=== PATIENT | female | born 1935 | race Caucasian/White ===

== ENCOUNTER 2019-03-19 17:54 | Inpatient (IN) | payer MEDICARE, OTHER ==
[~2019-03-19] VITALS: Ht 167.6 cm; Wt 62.5 kg
[2019-03-19] MEDS ORDERED: Synthroid88 MCG PO (18:10)
[2019-03-19] MEDS ORDERED: Ultram50 MG PO (18:10)
[2019-03-19] MEDS ORDERED: Ventolin/Prove6.7 GM INH (18:10)
[2019-03-19] MEDS ORDERED: OMEPRAZOLE MAGN20 M1 PO (18:10)
[2019-03-19 19:13] LABS: BASOPHILS ABSOLUTE AUTO 0.05 K/mm3 (0.00-0.23); BASOPHILS PERCENT AUTO 0 % (0-2); EOSINOPHILS ABSOLUTE AUTO 0.06 K/mm3 (0.00-0.68); EOSINOPHILS PERCENT AUTO 0 % (0-6); Hematocrit 30.9 % (33.0-51.0); Hemoglobin 9.2 g/dL (11.5-16.0); IMMATURE GRAN ABSOLUTE AUTO 0.11 K/mm3 (0.00-0.10); IMMATURE GRAN PERCENT AUTO 1 % (0-1); LYMPHOCYTES ABSOLUTE AUTO 1.07 K/mm3 (0.84-5.20); LYMPHOCYTES PERCENT AUTO 6 % (21-46); MONOCYTES ABSOLUTE AUTO 0.94 K/mm3 (0.16-1.47); MONOCYTES PERCENT AUTO 6 % (4-13); Mean Corpuscular HGB 20.6 pg (26.0-34.0); Mean Corpuscular HGB Conc 29.8 g/dL (31.5-36.5); Mean Corpuscular Volume 69 fL (80-100); Mean Platelet Volume 9.8 fL (9.1-12.4); NEUTROPHILS ABSOLUTE AUTO 14.86 K/mm3 (1.96-9.15); NEUTROPHILS PERCENT AUTO 87 % (41-73); Platelet Count 222 K/mm3 (150-400); RDW Coefficient Variation 19.4 % (11.7-14.2); RDW Standard Deviation 47.4 fL (35.1-46.3); Red Blood Cell Count 4.47 M/mm3 (3.80-5.20); White Blood Cell Count 17.09 K/mm3 (4.00-11.30)
[2019-03-19 19:30] LABS: Alanine Aminotransfer (ALT/SGP 27 U/L (12-78); Albumin, Blood 3.3 g/dL (3.4-5.0); Albumin/Globulin Ratio 0.8 (0.8-1.8); Alk Phos 119 U/L (50-136); Anion Gap 5 mmol/L (6-16); Aspartate Aminotrans (AST/SGOT 25 U/L (12-37); Bilirubin, Total 0.4 mg/dL (0.1-1.0); Blood Urea Nitrogen 15 mg/dL (8-24); Bun/Creatinine Ratio 22.3 (12.0-20.0); CO2, Blood 28 mmol/L (21-32); Calcium, Blood 8.8 mg/dL (8.5-10.1); Chloride, Blood 102 mmol/L (98-108); Creatinine, Blood 0.67 mg/dL (0.40-1.00); Globulin, Blood 4.2 g/dL (2.2-4.0); Glomerular Filtration Rate >60 (60-); Glucose, Blood 116 mg/dL (70-99); Potassium, Blood 3.4 mmol/L (3.5-5.5); Sodium, Blood 135 mmol/L (136-145); Total Protein, Blood 7.5 g/dL (6.4-8.2)
[2019-03-19 19:57] LABS: Source, Urine Voided
[2019-03-19 20:01] LABS: Bilirubin, Urine Neg (Neg); Blood, Urine 2+ (Neg); Glucose Qualitative, Urine Neg (Neg); Ketones, Urine 2+ (Neg); Leukocyte Esterase, Urine 1+ (Neg); Nitrite, Urine Neg (Neg); Protein, Urine Neg (Neg); Specific Gravity, Urine 1.015 (1.003-1.022); Urobilinogen, Urine NORM (Normal)
[2019-03-19 20:03] LABS: Appearance, Urine Clear (Clear); Color, Urine Yellow (P-Yellow)
[2019-03-19 20:07] LABS: Bacteria Mod /hpf; Mucus Light (0-Heavy); Squamous Epithelial Cells Rare /hpf (Few)
--- NOTE | 2019-03-20 04:31 | NUR ---
SHIFT SUMMARY- PT. ARRIVED FROM ED VIA STRETCHER INTO ROOM. ASSISTED INTO BED. A&OX3, PLEASANT AND COOPERATIVE WITH CARE. PT IS A SBA W/WALKER TO BATHROOM. DENIED ANY DISCOMFORT T/O THE SHIFT. PT. SLEEPING COMFORTABLY IN BED, NO APPARENT DISTRESS NOTED. CALL LIGHT WITHIN REACH AND SIDE RAILS UP X2. WILL CONT TO JIN.
[2019-03-20 04:41] LABS: Alanine Aminotransfer (ALT/SGP 22 U/L (12-78); Albumin, Blood 2.8 g/dL (3.4-5.0); Albumin/Globulin Ratio 0.7 (0.8-1.8); Alk Phos 109 U/L (50-136); Anion Gap 7 mmol/L (6-16); Aspartate Aminotrans (AST/SGOT 23 U/L (12-37); Bilirubin, Total 0.5 mg/dL (0.1-1.0); Blood Urea Nitrogen 11 mg/dL (8-24); Bun/Creatinine Ratio 15.7 (12.0-20.0); CO2, Blood 28 mmol/L (21-32); Calcium, Blood 8.1 mg/dL (8.5-10.1); Chloride, Blood 103 mmol/L (98-108); Glomerular Filtration Rate >60 (60-); Glucose, Blood 105 mg/dL (70-99); Potassium, Blood 3.2 mmol/L (3.5-5.5); Sodium, Blood 138 mmol/L (136-145); Total Protein, Blood 6.8 g/dL (6.4-8.2)
--- NOTE | 2019-03-20 16:08 | NUR ---
[facility] CARE INITIAL VISIT. Case conferenced with RN early in the day re: pt's requests to complete an AD. VIsit made this afternoon. Pt and her friend, Ann Marie, who pt identifies as her NOK and surrogate decision maker resting in the room but want to discuss advanced directives, goals of care, code status and also want to complete an advanced directive and/or POLST. Pt is curled up in bed. She expresses mistrust and fear of the medical community in general. She reports being afraid to come to medical facilities or Dr's offices for fear of being euthanized. She expresses that she does not want to be given a shot and put out. She expressess that she does not want to be kept alive by machines either. She spoke about residing at [facility] and meeting good people there in the past year. She is certain that what ever issue she is having with her lungs is not cancer because "God doesn't break his promises and he said he would cure me and he did.". We discussed her s/s and chronic conditions unrelated to her hx of lung cancer that may cause debility, sob and discomfort. We reviewed the AD form and the POLST form. She wants to pray about these with Ann Marie and others and asks that I return tomorrow, which I agreed to do. Pt was admitted with sepsis, SOB. CT shows enlarged mediastinal nodes, opacities Rul and Rml that per report may be pneumonia, atelectasis or aspiration. Pt has hiatal hernia, GERD and moderate to severe COPD. We discussed specifically CPR and intubation and pt does not think she would want either of those things. I informed her that currently with a full code status would receive those interventions if needed. She understands and will let me know tomorrow if she wants to remain a full code or change her code status. I gave her and Ann Marie some literature to review to help generate questions for her drs to help with their decision. Pt denies pain that is not managed by her current rxs per eMAR. She does describe high levels of anxiety being hospitalized and states it is ok with Ann Marie present. Extra pillow brought to room for Ann Marie so that she could rest while pt resting/sleeping. No other needs identified at this time. Plan to return tomorrow and cont. advanced care planning conversations.
--- NOTE | 2019-03-20 17:46 | NUR ---
SHIFT SUMMARY- PT ALERT AND ORIENTED HAD FAMILY FRIEND AT THE BEDSIDE T/O THE DAY. RECIEVED VERBAL CONSENT TO SPEAK WITH THE PT SON KAREN. HE CALLED FOR AN UPDATE, SPOKE TO HIM PER PT REQUEST. PT IS CURRENTLY SITTING UP IN BED WITH HER CALL LIGHT IN REACH WAS MEDICATED THREE TIMES FOR PAIN, HAD A LOW GRADE FEVER THIS MORNING 100.7 MEDICATED WITH TYLENOL. PT ALSO HAD A HEADACHE AT THAT TIME THAT RESOLVED WITH TYLENOL. PT SIGNED A REFUSAL TO RECIEVE BLOOD PRODUCTS WELL VERBAL CONSENT TO RELEASE INFORMATION. PT ON PO AND IV ABX. PT IS CURRENTLY SATING IN THE 90'S ON ROOM AIR. NO S&S OF DISTRESS NOTED AT THIS TIME.
--- NOTE | 2019-03-21 04:32 | NUR ---
SHIFT SUMMARY- PT. RESTED WELL T/O THE NIGHT, NO APPARENT DISTRESS NOTED. PT. C/O RUQ PAIN, MEDICATED 2X T/O THE SHIFT. PT. HAS PERSISTANT COUGH, RECEIVING PRN NEB TX'S WELL PO AND IV ABX'S. DENIES ANY NEEDS AT THIS TIME. CALL LIGHT WITHIN REACH AND SIDE RAILS UP X2. WILL CONT TO MONITOR.
[2019-03-21 06:13] LABS: BASOPHILS ABSOLUTE AUTO 0.06 K/mm3 (0.00-0.23); BASOPHILS PERCENT AUTO 0 % (0-2); EOSINOPHILS ABSOLUTE AUTO 0.27 K/mm3 (0.00-0.68); EOSINOPHILS PERCENT AUTO 2 % (0-6); Hematocrit 31.6 % (33.0-51.0); IMMATURE GRAN ABSOLUTE AUTO 0.12 K/mm3 (0.00-0.10); IMMATURE GRAN PERCENT AUTO 1 % (0-1); LYMPHOCYTES ABSOLUTE AUTO 2.37 K/mm3 (0.84-5.20); LYMPHOCYTES PERCENT AUTO 14 % (21-46); MONOCYTES ABSOLUTE AUTO 1.22 K/mm3 (0.16-1.47); MONOCYTES PERCENT AUTO 7 % (4-13); Mean Corpuscular HGB 19.8 pg (26.0-34.0); Mean Corpuscular HGB Conc 28.5 g/dL (31.5-36.5); Mean Corpuscular Volume 70 fL (80-100); Mean Platelet Volume 10.1 fL (9.1-12.4); NEUTROPHILS PERCENT AUTO 76 % (41-73); Platelet Count 235 K/mm3 (150-400); RDW Standard Deviation 48.3 fL (35.1-46.3); Red Blood Cell Count 4.54 M/mm3 (3.80-5.20); White Blood Cell Count 16.84 K/mm3 (4.00-11.30)
[2019-03-21 06:32] LABS: Anion Gap 5 mmol/L (6-16); Blood Urea Nitrogen 11 mg/dL (8-24); Bun/Creatinine Ratio 15.6 (12.0-20.0); CO2, Blood 29 mmol/L (21-32); Calcium, Blood 9.1 mg/dL (8.5-10.1); Chloride, Blood 104 mmol/L (98-108); Glomerular Filtration Rate >60 (60-); Glucose, Blood 94 mg/dL (70-99); Potassium, Blood 4.5 mmol/L (3.5-5.5); Sodium, Blood 138 mmol/L (136-145)
--- NOTE | 2019-03-21 10:15 | NUR ---
PT REFUSED DECAF COFFEE PT REFUSED DECAF COFFE. PT REQUESTED REGULAR. PT EDUCATED ON CARDIAC DIET. PT REFUSED ANYWAYS & REQUESTED REGULAR COFFEE AGAIN. 1 CUP GIVEN PER PT REQUEST.
--- NOTE | 2019-03-21 13:45 | NUR ---
Pal care f/u visit. Pt has been reading book left with her yesterday, Hard choices for loving people, regarding EOL care choices. She reports that she does not want CPR, intubation, blood transfusions or tube feedings. She has completed the POLST left with her yesterday and has it ready to sign, which she did. We spoke about her wade and beliefs and pt is confident in her choices for herself but expresses being scared even so. Comfort and assurance offered. Pt has a friend at bedside, also comforting her. notified of new POLST and new code status orders entered after talking with her RN and DR. BECKMAN faxed to medical records and original given back to pt. Pt has a large group of sabianism friends who are regularly present, supporting her.
--- NOTE | 2019-03-21 14:59 | NUR ---
PT FAMILY UPDATED. PT SON SAMIR UPDATED ON PT CONDITION & PLAN OF CARE. PT AGREED TO ALLOW FOR HIM TO KNOW ABOUT HER HEALTHCARE.
--- NOTE | 2019-03-21 17:00 | NUR ---
SHIFT SUMMARY PT HAD SLIGHT TEMP THIS AFTERNOON OF 99.1. PT TREATED WITH TYLENOL. TEMP WNL NOW. OTHER VITALS STABLE. NO OTHER CHANGES IN ASSESSMENT AT THIS TIME. PT MEDICATED FOR PAIN ONCE THIS SHIFT. POSSIBLE DC TOMORROW. WILL CONTINUE TO MONITOR UNTIL TURNOVER IS COMPLETE.
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
--- NOTE | 2019-03-22 03:52 | NUR ---
SHIFT SUMMARY- NO ACUTE EVENTS OVERNIGHT. PT. SLEPT WELL DURING THE NIGHT. PAIN MED GIVEN 1X PER EMAR. DENIED ANY OTHER NEEDS T/O THE NIGHT. ANTICIPATING D/C TOMORROW. CALL LIGHT WITHIN REACH AND SIDE RAILS UP X2. WILL CONT TO MONITOR.
--- NOTE | 2019-03-22 08:29 | NUR ---
PT PLEASANT COOP A/O TALKATIVE. STATES PAIN IN RIBS FROM COUGHING. MED PER EMAR. H/R REG, NO MURMER NOTED. NO TELE. LUNGS CLEAR, RESP EASY, UNLABORED. ON R.A. BT X4 LAST BM YEST. VOIDS INDEPENDANT TO BATHROOM. WITH FWW. BED IN LOW POSITION, CALL LITE IN REACH, CALLS APPROP
[2019-03-22] MEDS ORDERED: ACET325 PO (12:10)
[2019-03-22] MEDS ORDERED: Zithromax250 MG PO (12:11)
[2019-03-22] MEDS ORDERED: CEFP200 PO (12:13)
[2019-03-22] MEDS ORDERED: GUAI600T33 PO (12:13)
[2019-03-22] MEDS ORDERED: K-Dur20 MEQ PO (12:15)
[2019-03-22] MEDS ORDERED: Florastor250 MG PO (12:15)
[2019-03-22] MEDS ORDERED: SENN187 PO (12:16)
--- NOTE | 2019-03-22 12:57 | NUR ---
PT DISCHARGE REVIEWED WITH PT PT VERBALIZED UNDERSTANDING . IV PULLED INTACT.NO TELE. PENDING RIDE HOME
--- NOTE | 2019-03-22 14:30 | NUR ---
OUT DOOR WITH CLEANER WALL AT [phone]
== END 2019-03-22 13:46 | disposition home or self-care (01) | DRG 871 ==
LOC: ER 17:54 → MEDS 17:55
PROVIDERS: Emergency Medicine; Family Medicine; ADMIT Hospitalist
DX: A41.9 Sepsis, unspecified organism (principal); J18.9 Pneumonia, unspecified organism; J96.21 Acute and chronic respiratory failure with hypoxia; R65.20 Severe sepsis without septic shock; E87.6 Hypokalemia; K44.9 Diaphragmatic hernia without obstruction or gangrene; K21.9 Gastro-esophageal reflux disease without esophagitis; J43.9 Emphysema, unspecified; E03.9 Hypothyroidism, unspecified; Z85.118 Personal history of other malignant neoplasm of bronchus and lung; Z87.891 Personal history of nicotine dependence; Z59.0 Homelessness
CPT/HCPCS: 36415; 71046; 71260; 76705; 80048; 80053; 81001; 83690; 84145; 85025; 87040; 93005; 93010; 94640; 94644; 94760; 94761; 96361; 96365; 96372; 96375; 96376; 99285-25; A9270; G0378; J0696; J1650; J2405; J7030; Q9967

== ENCOUNTER 2020-03-15 13:13 | Emergency (ER) | payer OTHER ==
[~2020-03-15] VITALS: Ht 165.1 cm; Wt 65.8 kg
[~2020-03-15 13:13] MED LIST: ACET325 PO; CEFP200 PO; Florastor250 MG PO; GUAI600T33 PO; K-Dur20 MEQ PO; OMEPRAZOLE MAGN20 M1 PO; SENN187 PO; Synthroid88 MCG PO; Ultram50 MG PO; Ventolin/Prove6.7 GM INH; Zithromax250 MG PO
[2020-03-15] MEDS ORDERED: BUPR75 PO (14:00)
[2020-03-15 14:41] LABS: BASOPHILS ABSOLUTE AUTO 0.03 K/mm3 (0.00-0.23); BASOPHILS PERCENT AUTO 0 % (0-2); EOSINOPHILS ABSOLUTE AUTO 0.08 K/mm3 (0.00-0.68); EOSINOPHILS PERCENT AUTO 1 % (0-6); Hematocrit 31.7 % (33.0-51.0); Hemoglobin 9.3 g/dL (11.5-16.0); IMMATURE GRAN ABSOLUTE AUTO 0.02 K/mm3 (0.00-0.10); IMMATURE GRAN PERCENT AUTO 0 % (0-1); LYMPHOCYTES ABSOLUTE AUTO 1.51 K/mm3 (0.84-5.20); LYMPHOCYTES PERCENT AUTO 21 % (21-46); MONOCYTES ABSOLUTE AUTO 0.42 K/mm3 (0.16-1.47); MONOCYTES PERCENT AUTO 6 % (4-13); Mean Corpuscular HGB 20.1 pg (26.0-34.0); Mean Corpuscular HGB Conc 29.3 g/dL (31.5-36.5); Mean Corpuscular Volume 69 fL (80-100); Mean Platelet Volume 9.9 fL (9.1-12.4); NEUTROPHILS ABSOLUTE AUTO 5.29 K/mm3 (1.96-9.15); NEUTROPHILS PERCENT AUTO 72 % (41-73); Platelet Count 237 K/mm3 (150-400); RDW Coefficient Variation 19.9 % (11.7-14.2); RDW Standard Deviation 49.1 fL (35.1-46.3); Red Blood Cell Count 4.62 M/mm3 (3.80-5.20); White Blood Cell Count 7.35 K/mm3 (4.00-11.30)
[2020-03-15 15:41] LABS: Alanine Aminotransfer (ALT/SGP 15 U/L (12-78); Albumin, Blood 3.3 g/dL (3.4-5.0); Albumin/Globulin Ratio 0.8 (0.8-1.8); Alk Phos 91 U/L (50-136); Anion Gap 8 mmol/L (6-16); Aspartate Aminotrans (AST/SGOT 12 U/L (12-37); Bilirubin, Total 0.4 mg/dL (0.1-1.0); Blood Urea Nitrogen 12 mg/dL (8-24); Bun/Creatinine Ratio 16.6 (12.0-20.0); CO2, Blood 28 mmol/L (21-32); Chloride, Blood 107 mmol/L (98-108); Creatinine, Blood 0.72 mg/dL (0.40-1.00); Globulin, Blood 4.1 g/dL (2.2-4.0); Glomerular Filtration Rate >60 (60-); Glucose, Blood 91 mg/dL (70-99); Sodium, Blood 143 mmol/L (136-145); Total Protein, Blood 7.4 g/dL (6.4-8.2)
== END 2020-03-15 17:15 | disposition home or self-care (01) ==
LOC: ER 13:13
PROVIDERS: Emergency Medicine
DX: K29.70 Gastritis, unspecified, without bleeding (principal); I10 Essential (primary) hypertension; Z88.0 Allergy status to penicillin; Z87.891 Personal history of nicotine dependence; Z79.899 Other long term (current) drug therapy
CPT/HCPCS: 10040; 80053; 83690; 85025; 96374-59; 99284-25; C9113

== ENCOUNTER 2020-05-24 16:27 | Observation (INO) | payer OTHER ==
[~2020-05-24] VITALS: Ht 167.6 cm; Wt 68.0 kg
[~2020-05-24 16:27] MED LIST changes: +BUPR75 PO
[2020-05-24 17:59] LABS: BASOPHILS ABSOLUTE AUTO 0.04 K/mm3 (0.00-0.23); BASOPHILS PERCENT AUTO 1 % (0-2); EOSINOPHILS ABSOLUTE AUTO 0.22 K/mm3 (0.00-0.68); EOSINOPHILS PERCENT AUTO 3 % (0-6); Hematocrit 29.7 % (33.0-51.0); Hemoglobin 8.9 g/dL (11.5-16.0); IMMATURE GRAN ABSOLUTE AUTO 0.01 K/mm3 (0.00-0.10); IMMATURE GRAN PERCENT AUTO 0 % (0-1); LYMPHOCYTES ABSOLUTE AUTO 1.95 K/mm3 (0.84-5.20); LYMPHOCYTES PERCENT AUTO 27 % (21-46); MONOCYTES ABSOLUTE AUTO 0.67 K/mm3 (0.16-1.47); MONOCYTES PERCENT AUTO 9 % (4-13); Mean Corpuscular Volume 73 fL (80-100); NEUTROPHILS ABSOLUTE AUTO 4.25 K/mm3 (1.96-9.15); NEUTROPHILS PERCENT AUTO 60 % (41-73); Platelet Count 153 K/mm3 (150-400); RDW Standard Deviation 57.9 fL (35.1-46.3); Red Blood Cell Count 4.05 M/mm3 (3.80-5.20); White Blood Cell Count 7.14 K/mm3 (4.00-11.30)
[2020-05-24 18:20] LABS: Albumin, Blood 2.9 g/dL (3.4-5.0); Albumin/Globulin Ratio 0.8 (0.8-1.8); Bilirubin, Total 0.2 mg/dL (0.1-1.0); Bun/Creatinine Ratio 20.8 (12.0-20.0); Calcium, Blood 8.7 mg/dL (8.5-10.1); Creatinine, Blood 1.06 mg/dL (0.40-1.00); Globulin, Blood 3.6 g/dL (2.2-4.0); Potassium, Blood 3.7 mmol/L (3.5-5.5); Total Protein, Blood 6.5 g/dL (6.4-8.2)
[2020-05-24 21:39] LABS: Thyroid Stimulating Hormone 10.1 uIU/mL (0.360-4.800)
[2020-05-25 07:30] LABS: Source, Urine Clean Catch
[2020-05-25 07:45] LABS: Appearance, Urine Clear (Clear); Bilirubin, Urine Neg (Neg); Blood, Urine Neg (Neg); Color, Urine Yellow (P-Yellow); Glucose Qualitative, Urine Neg (Neg); Ketones, Urine Neg (Neg); Leukocyte Esterase, Urine 3+ (Neg); Nitrite, Urine Neg (Neg); Protein, Urine 1+ (Neg); Red Blood Cells, Urine Not Seen /hpf (0-2); Specific Gravity, Urine 1.015 (1.003-1.022); Squamous Epithelial Cells Rare /hpf (Few); U Amphetamine Screen Not Detected; U Barbituate Screen Not Detected; U Benzodiazapine Screen Not Detected; U Buprenorphine Screen Not Detected; U Cannabinoids Screen Not Detected; U Cocaine Screen Not Detected; U Methadone Screen Not Detected; U Methamphetamine Screen Not Detected; U Opiates Screen Not Detected; U Oxycodone Screen Not Detected; U Phencyclidine Screen Not Detected; U Propoxyphene Screen Not Detected; Urobilinogen, Urine NORM (Normal)
[2020-05-25 07:46] LABS: Bacteria Few /hpf
[2020-05-25] MEDS ORDERED: QUET25 PO (10:48)
[2020-05-25] MEDS ORDERED: DONE5 PO (10:48)
== END 2020-05-25 11:40 | disposition home or self-care (01) ==
LOC: ER 16:27 → EOR 16:28
PROVIDERS: Physician Assistant; ADMIT Emergency Medicine
DX: F03.90 Unspecified dementia, unspecified severity, without behavioral disturbance, psychotic disturbance, mood disturbance, and anxiety (principal); F22 Delusional disorders; D64.89 Other specified anemias; K21.9 Gastro-esophageal reflux disease without esophagitis; E03.9 Hypothyroidism, unspecified; I10 Essential (primary) hypertension; Z88.0 Allergy status to penicillin; Z79.899 Other long term (current) drug therapy; Z87.891 Personal history of nicotine dependence; Z85.118 Personal history of other malignant neoplasm of bronchus and lung
CPT/HCPCS: 36415; 80053; 81001; 82607; 82746; 84443; 85025; 87086; 99285; G0378; Q3014

== ENCOUNTER 2025-02-21 13:09 | Emergency (ER) | payer OTHER ==
[~2025-02-21] VITALS: Ht 167.6 cm; Wt 65.8 kg
[~2025-02-21 13:09] MED LIST changes: +DONE5 PO; +QUET25 PO
[2025-02-21] MEDS ORDERED: NS 1,000 ML IV SCH ×2 (13:50→17:25)
[2025-02-21 14:22] LABS: BASOPHILS ABSOLUTE AUTO 0.02 K/mm3 (0.00-0.23); BASOPHILS PERCENT AUTO 0 % (0-2); EOSINOPHILS ABSOLUTE AUTO 0.01 K/mm3 (0.00-0.68); EOSINOPHILS PERCENT AUTO 0 % (0-6); Hematocrit 38.4 % (33.0-51.0); Hemoglobin 13.2 g/dL (11.5-16.0); IMMATURE GRAN ABSOLUTE AUTO 0.04 K/mm3 (0.00-0.10); IMMATURE GRAN PERCENT AUTO 0 % (0-1); LYMPHOCYTES ABSOLUTE AUTO 0.89 K/mm3 (0.84-5.20); LYMPHOCYTES PERCENT AUTO 7 % (21-46); MONOCYTES ABSOLUTE AUTO 0.75 K/mm3 (0.16-1.47); MONOCYTES PERCENT AUTO 6 % (4-13); Mean Corpuscular HGB Conc 34.4 g/dL (31.5-36.5); Mean Corpuscular Volume 82 fL (80-100); NEUTROPHILS ABSOLUTE AUTO 11.86 K/mm3 (1.96-9.15); NEUTROPHILS PERCENT AUTO 87 % (41-73); NRBC ABSOLUTE 0.00 K/mm3 (0.00-0.02); NRBC Auto 0.0 /100 WBC (0.0-0.2); Platelet Count 298 K/mm3 (150-400); RDW Coefficient Variation 14.7 % (11.7-14.2); RDW Standard Deviation 43.4 fL (35.1-46.3)
[2025-02-21 14:44] LABS: Alanine Aminotransfer (ALT/SGP 33.0 U/L (12-78); Albumin, Blood 2.8 g/dL (3.4-5.0); Albumin/Globulin Ratio 0.8 (0.8-1.8); Anion Gap 11.0 mmol/L (3-11); Aspartate Aminotrans (AST/SGOT 37.0 U/L (12-37); Bilirubin, Total 0.8 mg/dL (0.1-1.0); Blood Urea Nitrogen 50.0 mg/dL (8-24); CO2, Blood 29.0 mmol/L (21-32); Calcium, Blood 8.6 mg/dL (8.5-10.1); Chloride, Blood 92.0 mmol/L (98-108); Creatinine, Blood 1.35 mg/dL (0.40-1.00); Globulin, Blood 3.5 g/dL (2.2-4.0); Glucose, Blood 104.0 mg/dL (70-99); Potassium, Blood 3.2 mmol/L (3.5-5.5); Sodium, Blood 129.0 mmol/L (136-145); Total Protein, Blood 6.3 g/dL (6.4-8.2)
[2025-02-21] MEDS ORDERED: BUSP5 PO (15:39)
[2025-02-21] MEDS ORDERED: CHLO25B PO (15:39)
[2025-02-21] MEDS ORDERED: Metoclopramide HCl 5MG / ML 2ML Vial IV ONE (17:25)
[2025-02-21 18:37] LABS: Source, Urine Straight Cath
[2025-02-21 18:41] LABS: Bilirubin, Urine Neg (Neg); Color, Urine Yellow (P-Yellow); Glucose Qualitative, Urine Neg (Neg); Ketones, Urine Neg (Neg); Leukocyte Esterase, Urine 1+ (Neg); Protein, Urine 1+ (Neg); Specific Gravity, Urine 1.020 (1.003-1.022); Urobilinogen, Urine NORM (Normal)
[2025-02-21 18:49] LABS: Red Blood Cells, Urine 0-2 /hpf (0-2)
[2025-02-21] MEDS ORDERED: Lidocaine 2% Viscous Soln 15 ML UDC PO ONE (20:35)
[2025-02-21] MEDS ORDERED: Atropine/Scopalam/Hyoscam/PB 5 ML UDC PO ONE (20:35)
[2025-02-21 21:15] VITALS: BP 158/80
[2025-02-21] MEDS ORDERED: OMEP20ER PO (21:15)
== END 2025-02-21 21:34 | disposition home or self-care (01) ==
LOC: ER 13:09
PROVIDERS: Physician Assistant
DX: K21.9 Gastro-esophageal reflux disease without esophagitis (principal); E87.1 Hypo-osmolality and hyponatremia; E87.6 Hypokalemia; K44.9 Diaphragmatic hernia without obstruction or gangrene; I10 Essential (primary) hypertension; F20.9 Schizophrenia, unspecified; F03.90 Unspecified dementia, unspecified severity, without behavioral disturbance, psychotic disturbance, mood disturbance, and anxiety; Z87.891 Personal history of nicotine dependence; Z88.0 Allergy status to penicillin; Z79.890 Hormone replacement therapy; Z79.899 Other long term (current) drug therapy
CPT/HCPCS: 51701; 71045; 74177; 80053; 81001; 84484; 85025; 87086; 93005; 93010; 96361; 96374-59; 99284-25; A9270; J2765; J7030; Q9967